=== PATIENT | female | born 1990 | race Caucasian/White ===

== ENCOUNTER 2017-03-11 13:26 | Emergency (ER) | payer BC ==
[~2017-03-11] VITALS: Ht 167.6 cm; Wt 70.5 kg
[2017-03-11 13:39] VITALS: Ht 167.6 cm; Wt 70.5 kg
[2017-03-11] MEDS ORDERED: SOD CHLORIDE 0.9% 1,000 ML IV STA (13:39)
[2017-03-11 14:00] LABS: BASOPHILS % 0.3 % (0.0-2.0); HEMATOCRIT 38.1 % (37.0-47.0); HEMOGLOBIN 13.9 g/dl (12.0-16.0); LYMPHOCYTES # 2.7 10^3/ul (0.8-2.9); LYMPHOCYTES % 28.5 % (15.0-51.0); MEAN CORPUSCULAR HEMOGLOBIN 30.1 pg (29.0-33.0); MEAN CORPUSCULAR HGB CONC 36.5 g/dl (32.0-37.0); MEAN CORPUSCULAR VOLUME 82.5 fl (82.0-101.0); MEAN PLATELET VOLUME 8.4 fl (7.4-10.4); MONOCYTE # 1.5 10^3/ul (0.3-0.9); MONOCYTES % 15.6 % (0.0-11.0); NEUTROPHILS % 55.4 % (39.0-77.0); PLATELET COUNT 297 10^3/UL (140-415); RED BLOOD COUNT 4.62 10^6/ul (4.20-5.40); RED CELL DISTRIBUTION WIDTH 12.2 % (11.5-14.5); WHITE BLOOD COUNT 9.6 10^3/ul (4.8-10.8)
[2017-03-11] MEDS ORDERED: LORAZEPAM 2 MG INJ IV ONE (14:00)
[2017-03-11 14:15] LABS: CALCIUM 9.5 mg/dl (8.4-10.2); CREATININE 1.22 mg/dl (0.44-1.00); POTASSIUM 3.5 mmol/L (3.5-5.1)
[2017-03-11 15:58] LABS: BARBITURATES Positive (NEGATIVE)
[2017-03-11 15:59] LABS: BENZODIAZEPINES Positive (NEGATIVE); CANNABINOIDS Negative (NEGATIVE); COCAINE Negative (NEGATIVE); OPIATES Positive (NEGATIVE)
[2017-03-11 18:41] VITALS: BP 115/69; PULSE 77; RESP 20; TEMP 98.1
--- NOTE | 2017-03-11 19:18 | ERD ---
ER Documentation Chief Complaint Date/Time DATE: 03/11/17 TIME: 19:13 Chief Complaint POSSIBLE METH OVERDOSE, CONFUSED, ALTERED,RESTLESS. HPI This 26-year-old female presents to the emergency room via ambulance from follow -up being very agitated at her rehab facility. Her counselor accompanies her and states that she is being very aggressive and agitated. She does not believe the patient would ever harm herself or others. Patient is very agitated difficult to obtain a history from her. She does state that she did use methamphetamines. He denies having any pain currently. ROS All systems reviewed and are negative except as per history of present illness over the patient is intoxicated currently.. Medications Home Meds Unable to Obtain Active Prescriptions or Reported Meds Allergies Allergies: Coded Allergies: No Known Allergy (Unverified , 03/11/17) PMhx/Soc Medical and Surgical Hx: pt denies Medical Hx, pt denies Surgical Hx Hx Alcohol Use: Yes Hx Substance Use: Yes (ADMITS TO USING 2 GRAMS OF METH ) Hx Tobacco Use: Yes Smoking Status: Current every day smoker Physical Exam Vitals Vital Signs Date Time Temp Pulse Resp B/P Pulse Ox O2 Delivery O2 Flow Rate FiO2 03/11/17 18:41 98.1 77 20 115/69 97 Room Air 03/11/17 16:45 72 18 121/59 98 Room Air 03/11/17 14:51 78 18 115/58 98 Room Air 03/11/17 13:39 103.5 125 22 100 Physical Exam Const: [] Head: Atraumatic Eyes: Normal Conjunctiva ENT: Normal External Ears, Nose and Mouth. Neck: Full range of motion..~ No meningismus. Resp: Clear to auscultation bilaterally Cardio: Regular rate and rhythm, no murmurs Abd: Soft, non tender, non distended. Normal bowel sounds Skin: No petechiae or rashes Back: No midline or flank tenderness Ext: No cyanosis, or edema Neur: Awake and alert Psych: Normal Mood and Affect Result Diagram: 03/11/17 1345 03/11/17 1345 Results 24 hrs Laboratory Tests Test 03/11/17 13:45 03/11/17 15:23 White Blood Count 9.610^3/ul Red Blood Count 4.6210^6/ul Hemoglobin 13.9g/dl Hematocrit 38.1% Mean Corpuscular Volume 82.5fl Mean Corpuscular Hemoglobin 30.1pg Mean Corpuscular Hemoglobin Concent 36.5g/dl Red Cell Distribution Width 12.2% Platelet Count 64982^3/UL Mean Platelet Volume 8.4fl Neutrophils % 55.4% Lymphocytes % 28.5% Monocytes % 15.6% Eosinophils % 0.0% Basophils % 0.3% Nucleated Red Blood Cells % 0.0/100WBC Neutrophils # (Manual) 510^3/ul Lymphocytes # 2.710^3/ul Monocytes # 1.510^3/ul Eosinophils # 0.010^3/ul Basophils # 0.010^3/ul Nucleated Red Blood Cells # 0.010^3/ul Sodium Level 138mmol/L Potassium Level 3.5mmol/L Chloride Level 99mmol/L Carbon Dioxide Level 24mmol/L Anion Gap 19 Blood Urea Nitrogen 22mg/dl Creatinine 1.22mg/dl Glucose Level 99mg/dl Calcium Level 9.5mg/dl Urine Opiates Screen Positive Urine Barbiturates Positive Urine Amphetamines Screen POSITIVE Urine Benzodiazepines Screen Positive Urine Cocaine Screen Negative Urine Cannabinoids Negative Current Medications Medications (Trade) Dose Ordered Sig/Tamiko Route PRN Reason Start Time Stop Time Status Last Admin Dose Admin Sodium Chloride (NS) 1,000 ml @ 1,000 mls/hr Q1H STAT IV 03/11/17 13:39 03/11/17 14:38 DC 03/11/17 13:52 Lorazepam (Ativan) 1 mg ONCE ONCE IV 03/11/17 14:00 03/11/17 14:01 DC 03/11/17 14:02 Procedures/MDM Patient with polysubstance abuse and mild renal insufficiency. She was initially tachycardic however this quickly resolved with Ativan and IV fluid. She was given 2 mg of Ativan IV. She was given normal saline 1 L bolus as well. She did eventually sober up. Admitted to using several drugs for today only methamphetamines. She has no thoughts of harming herself or others and is not having any pain currently. Normal neurological exam. Patient is somewhat somnolent. Going to allow her to sleep and her disposition will be after the oncoming physician. Anticipate that she will be discharged the next couple of hours. EKG interpretation: Normal sinus rhythm rate of 91, normal axis, no ST or T- wave changes concerning for acute ischemia. QT of 501. glass cutter helper interpretation: Normal sinus rhythm without arrhythmia. Departure Diagnosis: Primary Impression: Polysubstance abuse Additional Impression: Acute drug overdose Condition: Stable Patient Instructions: Understanding Methamphetamine Abuse and Addiction Referrals: [facility] YOU HAVE RECEIVED A MEDICAL SCREENING EXAM AND THE RESULTS INDICATE THAT YOU DO NOT HAVE A CONDITION THAT REQUIRES URGENT TREATMENT IN THE EMERGENCY DEPARTMENT. FURTHER EVALUATION AND TREATMENT OF YOUR CONDITION CAN WAIT UNTIL YOU ARE SEEN IN YOUR DOCTORS OFFICE WITHIN THE NEXT 1-2 DAYS. IT IS YOUR RESPONSIBILITY TO MAKE AN APPOINTMENT FOR FOLOW-UP CARE. IF YOU HAVE A PRIMARY DOCTOR --you should call your primary doctor and schedule an appointment IF YOU DO NOT HAVE A PRIMARY DOCTOR YOU CAN CALL OUR PHYSICIAN REFERRAL HOTLINE AT IF YOU CAN NOT AFFORD TO SEE A PHYSICIAN YOU CAN CHOSE FROM THE FOLLOWING [facility] CLINICS [facility] [address] [facility] [facility] [address] [facility] [facility] [address] [facility] [address] [facility] [facility] [address] [facility]. [address] Additional Instructions: Call your primary care doctor TOMORROW for an appointment during the next 2-3 days.See the doctor sooner or return here if your condition worsens before your appointment time. JAYDEN MARTINEZ DO Mar 11, 2017 19:17
== END 2017-03-11 19:58 | disposition home or self-care (01) ==
LOC: E/R 13:26
DX: T43.621A Poisoning by amphetamines, accidental (unintentional), initial encounter (principal); F17.210 Nicotine dependence, cigarettes, uncomplicated; R40.4 Transient alteration of awareness
CPT/HCPCS: 36415; 80048; 80307; 85025; 96374; 99284; J2060; J7030; P9612; 93005